=== PATIENT | male | born 1955 | race Caucasian/White ===

== ENCOUNTER 2017-10-27 22:47 | Inpatient (IN) ==
[2017-10-28 02:07] LABS: Baso # (Auto) 0.1 th/mm3 (0.0-0.2); Baso % (Auto) 0.5 % (0.0-2.0); Eos % (Auto) 0.3 % (0.0-4.0); Hematocrit 41.4 % (39.0-51.0); Hemoglobin 14.1 gm/dL (13.0-17.0); Lymph # (Auto) 0.9 th/mm3 (1.0-4.8); Lymph % (Auto) 9.1 % (9.0-44.0); Mean Corpuscular Hemoglobin 30.6 pg (27.0-34.0); Mean Corpuscular Volume 90.1 fL (80.0-100.0); Mean Platelet Volume 9.7 fL (7.0-11.0); Mono # (Auto) 0.4 th/mm3 (0.0-0.9); Mono % (Auto) 3.6 % (0.0-8.0); Neut # (Auto) 8.7 th/mm3 (1.8-7.7); Neut % (Auto) 86.5 % (16.0-70.0); Platelet Count 177 th/mm3 (150-450); Red Blood Count 4.59 mil/mm3 (4.50-5.90); Red Cell Distribution Width 13.1 % (11.6-17.2)
[2017-10-28 02:23] LABS: Alkaline Phosphatase 72 U/L (45-117)
[2017-10-28 02:25] LABS: Alanine Aminotransferase 32 U/L (12-78); Albumin 3.9 g/dL (3.4-5.0); Anion Gap 8 meq/L (5-15); Aspartate Aminotransferase 20 U/L (15-37); Blood Urea Nitrogen 17 mg/dL (7-18); Calcium 8.9 mg/dL (8.5-10.1); Chloride 105 meq/L (98-107); Glomerular Filtration Rate 37 mL/min (>89); Glucose,Random 114 mg/dL (74-106); Lipase 83 U/L (73-393); Sodium 138 meq/L (136-145)
[2017-10-28 02:26] LABS: Potassium 4.3 meq/L (3.5-5.1)
[2017-10-28] MEDS ORDERED: Sod Chloride 0.9% Inj 1,000 ML IV.SIG ONE (02:44)
[2017-10-28] MEDS ORDERED: Morphine Inj 4 MG/ML Vial IV.PUSH ONE (02:48)
--- NOTE | 2017-10-28 03:19 | CT ---
EXAM DATE: 10/28/2017 2:52 AM EDT AGE/SEX: 61 years / Male INDICATIONS: Abdominal pain and constipation two days. CLINICAL DATA: This is the patient's initial encounter. Patient reports that signs and symptoms have been present for 2 days and indicates a pain score of 5/10. MEDICAL/SURGICAL HISTORY: None. None. ORAL CONTRAST: No oral contrast ingested. RADIATION DOSE: 12.92 CTDI (mGy) COMPARISON: No prior exams available for comparison. TECHNIQUE: Multiple contiguous axial images were obtained through the abdomen and pelvis following b olus infusion of 96 ml Omnipaque 350 (iohexol) nonionic water-soluble contrast as a single exam dos e. No oral contrast ingested. Using automated exposure control and adjustment of the mA and/or kV ac cording to patient size, radiation dose was kept as low as reasonably achievable to obtain optimal di agnostic quality images. DICOM format image data is available electronically for review and comparis on. FINDINGS: Lower Lungs: The visualized lower lungs are clear. Liver: The liver has a homogeneous density without space-occupying lesion. There is no dilation of th e biliary tree. No calcified gallstones. Spleen: Homogeneous density without enlargement. Pancreas: Unremarkable without mass or calcification. Kidneys: Normal appearance to the right kidney. No evidence of hydronephrosis or calcified stones. T here is an abnormal appearance to the left kidney with mild renal enlargement, moderate severity hydr onephrosis, an obstructing stone in the proximal left ureter measuring 8 mm, and an additional calcif ied stone in the lower pole collecting system measuring 4 mm. There is fluid in the perirenal space a nd tracking along Gerota's fascia on the left side indicative of pyelosinus extravasation. The distal left ureter is normal in dimension. Adrenal Glands: Unremarkable. Aorta: The aorta and proximal iliac vessels are grossly unremarkable without aneurysmal dilation. Bowel/Mesentery: No dilated loops of small or large bowel and stop a few small diverticula in the si gmoid colon without radiographic evidence of diverticulitis. Abdominal Wall: Intact. Retroperitoneum: No evidence of adenopathy in the retrocrural, para-aortic, or deep pelvic regions. Bladder: Contours are smooth. No calcifications within the lumen. Reproductive Organs: No abnormal masses or calcifications seen. Inguinal: The inguinal region is unremarkable without evidence of adenopathy. Bony Structures: Unremarkable. CONCLUSION: 1. 8 mm obstructing stone in the proximal left ureter with moderate hydronephrosis and pyelosinus ex travasation in the pararenal space and along Gerota's fascia. 2. Small sigmoid diverticula without radiographic evidence of diverticulitis. Electronically signed by: Figueroa Bass MD 10/28/2017 3:18 AM EDT
[2017-10-28] MEDS ORDERED: Acetaminophen 325 MG Tablet PO PRN (03:46)
[2017-10-28] MEDS ORDERED: Temazepam 15 MG Capsule PO PRN (03:46)
[2017-10-28] MEDS ORDERED: Bisacodyl 10 MG Supp RECTAL PRN (03:46)
[2017-10-28] MEDS ORDERED: Morphine Inj 4 MG/ML Vial IV.PUSH PRN (03:48)
--- NOTE | 2017-10-28 04:03 | P.HPIM ---
History of Present Illness Primary Care Physician: Dago Bassett MD History of Present Illness: This is a 61-year-old male with a PMH of Diverticulitis, Gout and Sleep Apnea on CPAP at night who presented to the ER w/ complaints of left-sided flank pain. States symptoms started 2 days ago. Pain is severe, 10/10, intermittent , non-radiating, associated w/ nausea, no vomiting. Reports several episodes of hematuria 1wk ago but states symptoms resolved and he did not seek medical attention. On arrival, BP 200/99, HR 67, O2 sat 96% on RA, Temp 99.4. CBC essentially unremarkable. Creatinine 1.87, no previous labs for comparison. CT Abdomen/Pelvis with 8 mm obstructing stone proximal left ureter with moderate hydronephrosis. Dr. Marti consulted, plan is for evaluation in a.m. - Diagnosis (1) Renal calculus, left (2) AUREA (acute kidney injury) (3) HTN (hypertension) Inpatient Certification: I certify that the inpatient services were ordered in accordance with Medicare regulations governing the order. This includes certification that hospital inpatient services are reasonable and necessary and in the case of services not specified as inpatient-only under 42 CFR 419.22(n), that they are appropriately provided as inpatient services in accordance to with the 2-midnight benchmark under 43 CFR 412.3(e) Estimated Total Length of Stay (Days): 2 Plans for Post Hospital Care: Not yet determined Review of Systems PAST FAMILY HISTORY: Reviewed. No h/o DM or CAD All other systems reviewed negative except as stated in HPI PMFSH - History History Provided By: Patient - Tobacco History Smoking Status: Never smoker - Alcohol History How Often Do You Have a Drink Containing Alcohol: Monthly or less - Substance Use History Substance History: No History of Abuse - Travel History Recent Travel in the [place] Within the Last 8 Weeks: No Recent Travel Out of the Country Within the Last 8 Weeks: No - Immunization History Tetanus Immunization: >5 Years Hx Influenza Vaccine This Season: No Medications and Allergies Active Medications: Active Medications Acetaminophen (Tylenol) 650 mg PO Q4H PRN PRN Reason: Temp > 100.4 Al Hydroxide/Mg Hydroxide (Milk Of Magnesia Liq) 30 ml PO Q12H PRN PRN Reason: Mild Constipation Bisacodyl (Dulcolax Supp) 10 mg RECTAL DAILY PRN PRN Reason: SEVERE CONSITIPATION Sodium Chloride (Ns Inj) 1,000 mls @ 100 mls/hr IV.CONT .Q10H MIGUEL ANGEL Lactulose (Lactulose Liq) 30 ml PO DAILY PRN PRN Reason: SEVERE CONSITIPATION Morphine Sulfate (Morphine Inj) 2 mg IV.PUSH Q4H PRN PRN Reason: PAIN 6-10 Ondansetron HCl (Zofran Inj) 4 mg IV.PUSH Q6H PRN PRN Reason: NAUSEA OR VOMITING Senna/Docusate Sodium (Bushra-Colace) 1 tab PO BID MIGUEL ANGEL Sennosides (Senokot) 17.2 mg PO Q12H PRN PRN Reason: Moderate Constipation Sodium Chloride (Ns Flush) 2 ml IV.FLUSH PRN PRN PRN Reason: FLUSH AFTER USING IV ACCESS Temazepam (Restoril) 15 mg PO HS PRN PRN Reason: INSOMNIA Allergies Allergy/AdvReac Type Severity Reaction Status Date / Time No Known Allergies Allergy Unverified 10/27/17 23:50 Home Medications Medication Instructions Recorded Confirmed Type allopurinol 300 mg PO DAILY 10/28/17 10/28/17 History Exam Vital signs: Vital Signs 10/27/17 23:50 10/28/17 02:28 Temperature 99.4 F Pulse Rate 67 Respiratory Rate 18 20 Blood Pressure 200/99 H 188/105 H Pulse Oximetry 96 98 Intake & Output 10/27/17 10/27/17 10/28/17 06:59 18:59 06:59 Weight 105 kg Narrative: PE: GENERAL: Very pleasant middle-aged white male in no acute distress. HEENT: PERRLA, EOMI. No scleral icterus or conjunctival pallor. No lid lag or facial droop. CARDIOVASCULAR: Regular rate and rhythm. No obvious murmurs to auscultation. No chest tenderness to palpation. RESPIRATORY: No obvious rhonchi or wheezing. Clear to auscultation. Breath sounds equal bilaterally. GASTROINTESTINAL: Abdomen soft, left flank tenderness palpation, nondistended. BS normal. MUSCULOSKELETAL: Extremities without clubbing, cyanosis, or edema. No obvious deformities. NEUROLOGICAL: Awake, alert and oriented x4. No focal neurologic deficits. Moving both upper and lower extremities spontaneously. Results - Labs CBC & Chem 7: 10/28/17 01:55 10/28/17 01:55 Labs: Short CBC 10/28/17 Range/Units 01:55 WBC 10.0 (4.0-11.0) th/mm3 Hgb 14.1 (13.0-17.0) gm/dL Hct 41.4 (39.0-51.0) % Plt Count 177 (150-450) th/mm3 BMP 10/28/17 01:55 Sodium 138 Potassium 4.3 Chloride 105 Carbon Dioxide 25.0 BUN 17 Creatinine 1.87 H Calcium 8.9 Liver Function 10/28/17 Range/Units 01:55 Total Bilirubin 0.6 (0.2-1.0) mg/dL AST 20 (15-37) U/L ALT 32 (12-78) U/L Alkaline Phosphatase 72 (45-117) U/L Albumin 3.9 (3.4-5.0) g/dL - Imaging Impressions Abdomen/Pelvis CT 10/28/17 01:40 CONCLUSION: 1. 8 mm obstructing stone in the proximal left ureter with moderate hydronephrosis and pyelosinus extravasation in the pararenal space and along Gerota's fascia. 2. Small sigmoid diverticula without radiographic evidence of diverticulitis. Caprini VTE Risk Assessment Caprini VTE Risk Assessment: No/Low Risk (score <= 1) Caprini Risk Assessment Model: Point Value = 1 Point Value = 2 Point Value = 3 Point Value = 5 Age 41-60 Minor surgery BMI > 25 kg/m2 Swollen legs Varicose veins or History of unexplained or recurrent spontaneous Oral contraceptives or hormone replacement Sepsis (< 1 month) Serious lung disease, including pneumonia (< 1 month) Abnormal pulmonary function Acute myocardial infarction Congestive heart failure (< 1 month) History of inflammatory bowel disease Medical patient at bed rest Age 61-74 Arthroscopic surgery Major open surgery (> 45 min) Laparoscopic surgery (> 45 min) Malignancy Confined to bed (> 72 hours) Immobilizing plaster cast Central venous access Age >= 75 History of VTE Family history of VTE Factor V Leiden Prothrombin [id number] Lupus anticoagulant Anticardiolipin antibodies Elevated serum homocysteine Heparin-induced thrombocytopenia Other congenital or acquired thrombophilia Stroke (< 1 month) Elective arthroplasty Hip, pelvis, or leg fracture Acute spinal cord injury (< 1 month) Prophylaxis Regimen: Total Risk Factor Score Risk Level Prophylaxis Regimen 0-1 Low Early ambulation 2 Moderate Order ONE of the following: *Sequential Compression Device (SCD) *Heparin 5000 units SQ BID 3-4 Higher Order ONE of the following medications: *Heparin 5000 units SQ TID *Enoxaparin/Lovenox 40 mg SQ daily (WT < 150 kg, CrCl > 30 mL/min) *Enoxaparin/Lovenox 30 mg SQ daily (WT < 150 kg, CrCl > 10-29 mL/min) *Enoxaparin/Lovenox 30 mg SQ BID (WT < 150 kg, CrCl > 30 mL/min) AND/OR *Sequential Compression Device (SCD) 5 or more Highest Order ONE of the following medications: *Heparin 5000 units SQ TID (Preferred with Epidurals) *Enoxaparin/Lovenox 40 mg SQ daily (WT < 150 kg, CrCl > 30 mL/min) *Enoxaparin/Lovenox 30 mg SQ daily (WT < 150 kg, CrCl > 10-29 mL/min) *Enoxaparin/Lovenox 30 mg SQ BID (WT < 150 kg, CrCl > 30 mL/min) AND *Sequential Compression Device (SCD) Assessment and Plan - Assessment (1) Renal calculus, left Code(s): N20.0 - Calculus of kidney Status: Acute (2) AUREA (acute kidney injury) Code(s): N17.9 - Acute kidney failure, unspecified Status: Acute (3) HTN (hypertension) Code(s): I10 - Essential (primary) hypertension Status: Acute - Plan A/P: 1. Left Renal Stone: acute onset left flank pain, CT Abd/Pelvis w/ 8mm obstructing stone left proximal ureter w/ moderate hydronephrosis, images reviewed. No h/o stone. Dr. Marti consulted, will evaluate. Check U/a for possible UTI. Flomax, analgesics/antiemetics as needed. IVF. NPO for possible intervention in am. 2. AUREA: Creatinine 1.87, no previous labs for comparison, presumably new. IVF for hydration, follow up U/a, Monitor I/O, repeat labs in am. 3. HTN: Uncontrolled, BP 200's on arrival, likely secondary to severe pain, monitor BP, antihypertensives as needed for BP >180 4. DVT Prophylaxis: SCD/Teds 5. Social work for d/c planning as needed 6. Case discussed w/ ER physician at length, labs/records/imaging reviewed by me.
[2017-10-28] MEDS: Sod Chloride 0.9% Inj 1,000 ML IV.CONT SCH ×2 (04:18→14:33)
[2017-10-28 04:40] LABS: Bilirubin,Urine Negative (Negative); Clarity,Urine Clear (Clear); Color,Urine Yellow (Yellw/Straw); Glucose,Urine (UA) Negative (Negative); Leukocyte Esterase,Urine Negative (Negative); Nitrite,Urine Negative (Negative); Specific Gravity,Urine 1.054 (1.002-1.035)
[2017-10-28] MEDS ORDERED: Sodium Chlor 0.9% Inj 500 ML IV.SIG SCH (06:00)
[2017-10-28] MEDS ORDERED: Chlorhexidine Gluconate 2% 1 Pack (2 Cloths) TOPICAL SCH (06:00)
[2017-10-28] MEDS: Morphine Inj 4 MG/ML Vial IV.PUSH PRN ×2 (06:42→10:19)
--- NOTE | 2017-10-28 07:54 | ED ---
HPI General Chief Complaint: Abdominal Pain Stated Complaint: Vomiting/Constipated/Side pain Time Seen by Provider: 10/28/17 01:33 Source: patient Mode of arrival: ambulatory Limitations: no limitations History of Present Illness HPI narrative: Patient is a 61-year-old male who presents with complaint of left flank pain for the last several hours. He also describes nausea, vomiting , constipation. No fever nor chills. No cough or congestion. No chest pain or dyspnea. MD complaint: abdominal pain Onset (ago): hour(s) Pain Consistency: constant Location: L flank Severity: moderate Quality: aching Radiation: none Relieving factors: nothing Exacerbating factors: nothing Associated symptoms: nausea, vomiting and constipation Related Data Home Medications Medication Instructions Recorded Confirmed allopurinol 300 mg PO DAILY 10/28/17 10/28/17 Allergies Allergy/AdvReac Type Severity Reaction Status Date / Time No Known Allergies Allergy Unverified 10/27/17 23:50 Review of Systems Except as stated in HPI: all other systems reviewed are negative Constitutional Denies fever(s) Eyes Denies blurry vision ENT Denies nasal congestion Cardiovascular Denies chest pain Respiratory Denies dyspnea Gastrointestinal Reports abdominal pain, Reports constipation, Reports nausea and Reports vomiting Genitourinary Reports flank pain Musculoskeletal Denies back pain Integumentary/Breasts Denies rash PMFSH Social History Social History Substance History: No History of Abuse Smoking Status: Never smoker How Often Do You Have a Drink Containing Alcohol: Monthly or less Recent Travel in [facility] within the Last 8 Weeks: No Recent Out of Country Travel within the Last 8 Weeks: No Immunization History Tetanus Immunization: >5 Years Hx Influenza Vaccine This Season: No Exam Narrative Exam Narrative: GENERAL: Well-appearing male in no acute distress SKIN: Focused skin assessment warm/dry. HEAD: Atraumatic. Normocephalic. EYES: Pupils equal and round. No scleral icterus. No injection or drainage. ENT: No nasal bleeding or discharge. Mucous membranes pink and moist. NECK: Trachea midline. No JVD. CARDIOVASCULAR: Regular rate and rhythm. No murmur appreciated. RESPIRATORY: No accessory muscle use. Clear to auscultation. Breath sounds equal bilaterally. GASTROINTESTINAL: Abdomen soft, nondistended. Tenderness in the left side of the abdomen. No CVA tenderness. Hepatic and splenic margins not palpable. MUSCULOSKELETAL: No obvious deformities. No clubbing. No cyanosis. No edema. NEUROLOGICAL: Awake and alert. No obvious cranial nerve deficits. Motor grossly within normal limits. Normal speech. PSYCHIATRIC: Appropriate mood and affect; insight and judgment normal. Course Initial Documented Vital Signs Temperature 99.4 F 10/27/17 23:50 Pulse Rate 67 10/27/17 23:50 Respiratory Rate 18 10/27/17 23:50 Blood Pressure 200/99 H 10/27/17 23:50 Pulse Oximetry 96 10/27/17 23:50 Last Documented Vital Signs Temperature 99.4 F 10/27/17 23:50 Pulse Rate 76 10/28/17 04:09 Respiratory Rate 18 10/28/17 04:09 Blood Pressure 178/99 H 10/28/17 04:09 Pulse Oximetry 95 10/28/17 04:09 Medical Decision Making MDM Narrative Medical decision making narrative: Patient is a 61-year-old male who presents with complaint of left side/flank pain vomiting and constipation. He is hemodynamically stable in the emergency department. Labs reveal an acute kidney injury but urine is unremarkable. CT shows an 8 mm obstructing stone with hydronephrosis. I spoke to Dr. Marti, urologist on-call, who recommended the patient be admitted to the hospitalist service. Differential Diagnosis Differential Diagnosis: Differential diagnosis includes but is not limited to, diverticulitis, acute renal stone, gastritis, small bowel obstruction. Medical Records Medical records reviewed: Yes I reviewed the patient's medical records. Lab Data Lab results reviewed: Yes I reviewed the patient's lab results. Lab results narrative: Labs reveal elevation in creatinine from baseline. Result diagrams: 10/28/17 01:55 10/28/17 01:55 Lab Results 10/28/17 10/28/17 10/28/17 Range/Units 01:55 01:55 03:45 WBC 10.0 (4.0-11.0) th/mm3 RBC 4.59 (4.50-5.90) mil/mm3 Hgb 14.1 (13.0-17.0) gm/dL Hct 41.4 (39.0-51.0) % MCV 90.1 (80.0-100.0) fL MCH 30.6 (27.0-34.0) pg MCHC 34.0 (32.0-36.0) % RDW 13.1 (11.6-17.2) % Plt Count 177 (150-450) th/mm3 MPV 9.7 (7.0-11.0) fL Neut % (Auto) 86.5 H (16.0-70.0) % Lymph % (Auto) 9.1 (9.0-44.0) % Stanton % (Auto) 3.6 (0.0-8.0) % Eos % (Auto) 0.3 (0.0-4.0) % Baso % (Auto) 0.5 (0.0-2.0) % Neut # (Auto) 8.7 H (1.8-7.7) th/mm3 Lymph # (Auto) 0.9 L (1.0-4.8) th/mm3 Stanton # (Auto) 0.4 (0.0-0.9) th/mm3 Eos # (Auto) 0.0 (0.0-0.4) th/mm3 Baso # (Auto) 0.1 (0.0-0.2) th/mm3 WBC Differential . Differential Comment Auto diff final Sodium 138 (136-145) meq/L Potassium 4.3 (3.5-5.1) meq/L Chloride 105 (98-107) meq/L Carbon Dioxide 25.0 (21.0-32.0) meq/L Anion Gap 8 (5-15) meq/L BUN 17 (7-18) mg/dL Creatinine 1.87 H (0.60-1.30) mg/dL Estimated GFR 37 L (>89) mL/min Random Glucose 114 H (74-106) mg/dL Calcium 8.9 (8.5-10.1) mg/dL Total Bilirubin 0.6 (0.2-1.0) mg/dL AST 20 (15-37) U/L ALT 32 (12-78) U/L Alkaline Phosphatase 72 (45-117) U/L Total Protein 8.0 (6.4-8.2) g/dL Albumin 3.9 (3.4-5.0) g/dL Lipase 83 (73-393) U/L Urine Color Yellow (Yellw/Straw) Urine Clarity Clear (Clear) Urine pH 5.0 (5.0-8.5) Ur Specific [place] 1.054 H (1.002-1.035) Urine Protein Negative (Neg-Trace) mg/dL Urine Glucose (UA) Negative (Negative) mg/dL Urine Ketones 20 (Negative) mg/dL Urine Occult Blood Negative (Negative) Urine Nitrate Negative (Negative) Urine Bilirubin Negative (Negative) Urine Urobilinogen Less than 2 (Less than 2) mg/dL Ur Leukocyte Esterase Negative (Negative) Urine RBC 2 (0-3) /hpf Urine WBC 1 (0-5) /hpf Micro UA Comment Culture not ind Urine Culture Comments Culture not ind Imaging Data Attestation: I personally reviewed and interpreted this imaging study as follows : My impression: Renal stone. Radiologist's impression: Abdomen/Pelvis CT 10/28/17 01:40 CONCLUSION: 1. 8 mm obstructing stone in the proximal left ureter with moderate hydronephrosis and pyelosinus extravasation in the pararenal space and along Gerota's fascia. 2. Small sigmoid diverticula without radiographic evidence of diverticulitis. Discharge Plan Discharge Disposition Patient Disposition: 30 Still Patient Discharge Condition Condition: Stable Discharge Details Diagnosis: AUREA (acute kidney injury), Renal calculus, left Physicians Team ED Provider: Twyla Parham Primary Care Provider: Dago Bassett Attending Provider: Padmini Baker Status ED Status: Left Department Discharge Information Discharge Date/Time: 10/28/17 07:16
[2017-10-28] MEDS ORDERED: Senna/Docusate Sodium 8.6/50 MG Tablet PO SCH (09:00)
[2017-10-28] MEDS ORDERED: Lidocaine PF 1% Inj 5 ML Syringe INFILTRATN ONE (12:00)
[2017-10-28] MEDS ORDERED: Phenylephrine/NS 1000 MCG/10ML Syringe IV.PUSH ONE (12:00)
--- NOTE | 2017-10-28 13:57 | MB ---
cc: Petar Marti DO DATE: 10/28/2017 HISTORY OF PRESENT ILLNESS: Mr. Hayward is a pleasant 61-year-old male who presented with left-sided flank pain. CT scan demonstrated an 8 mm proximal left ureteral calculus with hydronephrosis, what appeared to be a forniceal rupture. His creatinine on admission was 1.87. He denies any prior history of stones. He did have some hematuria prior to admission. PAST MEDICAL HISTORY: Includes hypertension for which he is not currently taking medications. PAST SURGICAL HISTORY: Noted for hernia repair. SOCIAL HISTORY: He denies any drinking or using drugs in the past. He denies smoking. FAMILY HISTORY: He denies any family history of prostate cancer. REVIEW OF SYSTEMS: He notes left-sided flank pain, some mild nausea, no vomiting. Hematuria is noted. Denies chest pain, shortness of breath, headaches, gait disturbances or bleeding disorders. Remaining review of systems were reviewed and were negative. PHYSICAL EXAMINATION: VITAL SIGNS: Presently temperature 98.6, heart rate 78, respiratory rate 18, blood pressure 170/92. GENERAL: He is a well-developed, well-nourished, 61-year-old male in no acute distress. HEENT: Normocephalic, atraumatic. Pupils equal, round, regular and reactive to light. Extraocular movements intact. NECK: Supple. HEART: Regular rate and rhythm. LUNGS: Clear. ABDOMEN: Soft, nontender, and nondistended. BACK: There is left CVA tenderness noted. GENITOURINARY: Normal phallus. Testes descended. EXTREMITIES: Show no evidence of cyanosis, clubbing, or edema. LABORATORY DATA: White count is noted to be 10.0, hemoglobin 14.1, hematocrit 41.4, platelet count of 177. Sodium 138, potassium 4.3, chloride 105, CO2 of 25, BUN of 17, creatinine 0.87, glucose of 118. Urinalysis 2 red cells, 1 white cell. IMAGING STUDIES: Again, CT scan 8 mm proximal stone with left hydronephrosis with perinephric fluid, consistent with forniceal rupture. ASSESSMENT AND PLAN: This is a 61-year-old male with findings of an 8 mm proximal left ureteral stone. Recommend cystoscopy with left double-J stent insertion. Risks and benefits discussed. The patient will follow up with outpatient extracorporeal shockwave lithotripsy. Thank you for the consult and allowing me to participate in the care of this patient. DO FLACA Dubon/BURTON , 01:42 PM , 01:49 PM
--- NOTE | 2017-10-28 14:54 | P.OP ---
- Preoperative Diagnosis (1) Renal calculus, left (2) Hydronephrosis - Postoperative Diagnosis (1) Bladder tumor (2) Renal calculus, left (3) Hydronephrosis Date of procedure: 10/28/17 Procedure: Cystoscopy with transurethral resection of a bladder tumor, left retrograde pyelogram, left double-J stent insertion Anesthesia: other (General LMA) Surgeon: Petar Marti DO Estimated blood loss (mL): 25 Operation and Findings: 61-year-old male presented to the emergency room with findings of an 8 mm proximal left ureteral stone with hydronephrosis and perinephric stranding with possible forniceal rupture. Decision made to bring the patient to the operating room to undergo cystoscopy left retrograde study left double-J stent insertion. Risk and benefits were discussed preoperatively the patient was willing to proceed. The patient was brought to the operating room and identified by myself as Dago Hayward. He was placed in dorsal lithotomy position, prepped and draped in sterile fashion, received preprocedure antibiotics and general LMA anesthesia was administered. 22 Afghan cystoscope was inserted in the bladder and pugh cystoscopy revealed a large bladder tumor over 5 cm in size along the left lateral wall above the left ureteral orifice. There is also some erythema identified at the left dome. Using the Certess resectoscope with a 24 loop the bladder tumor was resected. It was also cauterized. This was sent to pathology. The area of erythema at the right upper dome region was also cauterized with Bovie cautery. Once all the bladder tumor was resected then attention was directed to the left ureteral orifice. A 5 Afghan opening catheter was inserted in the left ureteral orifice and retrograde pyelogram was then performed. The stone was visualized at the area of the UPJ and was pushed back to the kidney. A 0.35 sensor wire was then passed through the opening catheter with a good curl in the kidney. A 6 Afghan 22 cm was then slipped over the wire without difficulty. The bladder was evacuated and the patient was awoken extubated transferred Stable condition. He will follow-up in the office to be scheduled for left extracorporeal shockwave lithotripsy and in 6 weeks will undergo a repeat TURBT.
[2017-10-28] MEDS ORDERED: fentaNYL Citrate Inj 100 MCG/2 ML Ampul ONE ×2 (15:15)
--- NOTE | 2017-10-28 17:12 | P.PN ---
Subjective Interval history: Pt seen and examined for f/u of 8 mm L ureteral stone s/p cystoscopy and stent placement today with Dr. Marti. He reports his pain is well-controlled. He is still having some dysuria and hematuria but flank pain has largely resolved. He is very anxious to get home. He reports he has an appointment scheduled with Dr. Marti at Monday. He agrees to get a f/u BMP as an outpatient in two days for his AUREA secondary to the stone. Physical Exam Vital signs: Vital Signs 10/27/17 23:50 10/28/17 02:28 10/28/17 04:09 Temperature 99.4 F Pulse Rate 67 76 Respiratory Rate 18 20 18 Blood Pressure 200/99 H 188/105 H 178/99 H Pulse Oximetry 96 98 95 10/28/17 08:00 10/28/17 12:00 10/28/17 15:03 Temperature 98.6 F 98.4 F 100.0 F H Pulse Rate 78 90 106 H Respiratory Rate 18 16 14 Blood Pressure 170/92 H 178/91 H 131/75 Pulse Oximetry 95 94 L 96 10/28/17 15:15 10/28/17 15:30 Temperature 98.3 F Pulse Rate 101 H 98 H Respiratory Rate 14 14 Blood Pressure 140/78 130/77 Pulse Oximetry 95 96 Intake & Output 10/27/17 10/28/17 10/28/17 18:59 06:59 18:59 Intake Total 1900 / 1900 Output Total 5 / 5 Balance 1895 / 1895 Weight 105 kg Intake: IV 1900 / 1900 NS Inj 1,000 ML @ 100 mls/hr IV 900 / 900 .CONT .Q10H MIGUEL ANGEL Rx#:[id number] LR 1000 mL Inj 1,000 ML @ 30 1000 / 1000 mls/hr IV.SIG .Q24H MIGUEL ANGEL Rx#: [id number] Output: Estimated Blood Loss 5 / 5 Other: Date of Last Bowel Movement 10/25/17 Narrative: GENERAL: WN, WD male resting in bed in NAD. SKIN: Warm and dry. HEART: RRR no m/r/g. LUNGS: CTAB without wheezes or crackles. ABDOMEN: +BS, soft, NT, ND. EXTREMITIES: No LE edema. NEURO: Awake and alert. Nonfocal. PSYCH: Appropriate mood and affect. Results - Labs CBC & Chem 7: 10/28/17 01:55 10/28/17 01:55 Laboratory Results - last 24 hr 10/28/17 10/28/17 10/28/17 01:55 01:55 03:45 WBC 10.0 RBC 4.59 Hgb 14.1 Hct 41.4 MCV 90.1 MCH 30.6 MCHC 34.0 RDW 13.1 Plt Count 177 MPV 9.7 Neut % (Auto) 86.5 H Lymph % (Auto) 9.1 [place] % (Auto) 3.6 Eos % (Auto) 0.3 Baso % (Auto) 0.5 Neut # (Auto) 8.7 H Lymph # (Auto) 0.9 L [place] # (Auto) 0.4 Eos # (Auto) 0.0 Baso # (Auto) 0.1 WBC Differential . Differential Comment Auto diff final Sodium 138 Potassium 4.3 Chloride 105 Carbon Dioxide 25.0 Anion Gap 8 BUN 17 Creatinine 1.87 H Estimated GFR 37 L Random Glucose 114 H Calcium 8.9 Total Bilirubin 0.6 AST 20 ALT 32 Alkaline Phosphatase 72 Total Protein 8.0 Albumin 3.9 Lipase 83 Urine Color Yellow Urine Clarity Clear Urine pH 5.0 Ur Specific [place] 1.054 H Urine Protein Negative Urine Glucose (UA) Negative Urine Ketones 20 Urine Occult Blood Negative Urine Nitrate Negative Urine Bilirubin Negative Urine Urobilinogen Less than 2 Ur Leukocyte Esterase Negative Urine RBC 2 Urine WBC 1 Micro UA Comment Culture not ind Urine Culture Comments Culture not ind - Imaging Impressions Abdomen/Pelvis CT 10/28/17 01:40 CONCLUSION: 1. 8 mm obstructing stone in the proximal left ureter with moderate hydronephrosis and pyelosinus extravasation in the pararenal space and along Gerota's fascia. 2. Small sigmoid diverticula without radiographic evidence of diverticulitis. Assessment and Plan - Assessment (1) Renal calculus, left Code(s): N20.0 - Calculus of kidney Status: Acute (2) AUREA (acute kidney injury) Code(s): N17.9 - Acute kidney failure, unspecified Status: Acute (3) HTN (hypertension) Code(s): I10 - Essential (primary) hypertension Status: Acute - Plan 61 YOWM with history of gout and JOHNY admitted earlier this morning for L flank pain found to have an 8 mm left-sided ureteral stone. 1. Ureteral stone - CT A/P showing 8 mm obstructing stone in the proximal left ureter with moderate hydronephrosis - Urology consulted - S/P cystoscopy with stent placement, appreciate intervention - Pt to f/u as outpatient for lithotripsy - [place] PRN - Encourage adequate hydration 2. AUREA - Secondary to above - Encourage hydration - Avoid NSAIDs - BMP in two days to ensure resolution 3. Gout - Resume home allopurinol 4. JOHNY - Resume CPAP on discharge [facility] Prescription Drug Monitoring Database has been queried and verified prior to prescribing the controlled substance. Acute pain exception. This patient has normal, predicted, physiological, and time-limited response to an adverse stimulus associated with kidney stone as described above. There is a lack of alternative treatment options other than to include the prescribed narcotic treatment for this condition. Discussed Condition With: The patient Discharge Planning: D/C home and f/u with urologist this week
[2017-10-31 18:47] VITALS: BP 135/79; PULSE 95; RESP 18; TEMP 98.2; O2SAT 93
== END 2017-10-28 18:31 | disposition home or self-care (01) ==
LOC: NEPC 22:47 → NEDA 10-28 04:00 → N07 10-28 05:37
PROVIDERS: ADMIT Family Medicine; ATTEND Family Medicine